=== PATIENT | male | born 2000 | race Two or more races ===

== ENCOUNTER 2024-11-15 10:27 | Emergency (ER) | payer SELFPAY ==
[2024-11-15 10:51] VITALS: BP 129/87; PULSE 73; RESP 16; TEMP 36.5; O2SAT 97; BMI 27.5
--- NOTE | 2024-11-15 10:52 | ED_ITS ---
HPI - Nausea/Vomiting/Diarrhea General Chief complaint: Nausea/Vomiting/Diarrhea Stated complaint: dizzy vomiting Time Seen by Provider: 11/15/24 11:15 Source: patient Mode of arrival: ambulatory Limitations: no limitations History of Present Illness ED Provider: ANDERS HADLEY Narrative: 23 yo male with intermittent vomiting x 2 weeks worse with food but no diarrhea, no fevers, states food is triggering him. He has not had this before. Notes he is under a lot of stress. He has missed work. He doesn't throw up after every meal but just some. Not on any medications for it. MD elicited complaint: nausea and vomiting Onset (ago): week(s) (2) Description of vomiting: food contents Associated nausea: Yes Associated abdominal pain: No Location of pain: none Severity: moderate Exacerbating factors: eating Relieving factors: none Context: other Associated symptoms: nausea/vomiting Related Data Previous Rx's ?Medication ?Instructions ?Recorded famotidine 20 mg tablet (Pepcid) 20 mg PO DAILY PRN abdominal 11/15/24 discomfort #30 tabs omeprazole 20 mg capsule,delayed 20 mg PO DAILY 14 days #14 caps 11/15/24 release ondansetron 4 mg disintegrating 4 mg PO Q8H PRN nausea and 11/15/24 tablet vomiting #20 tabs Allergies Allergy/AdvReac Type Severity Reaction Status Date / Time shellfish derived [shellfish] Allergy Unknown Verified 11/15/24 10:55 Review of Systems 2 Review of Systems: Constitutional : No Weight loss, No Fever, No Chills ENT/Mouth : No sore throat, No Rhinorrhea Eyes: No Swelling, No Redness Cardiovascular : No Chest Pain, No SOB, NoEdema Respiratory : No Cough, No Sputum, No Wheezing Gastrointestinal : Positive Nausea, Positive Vomiting, no Diarrhea, no abdominal Pain, No Hematochezia, No Melena Genitourinary : No Dysuria, No Urinary Frequency, No Hematuria, No Urgency Musculoskeletal : No joint pain, No Myalgias, No Joint Swelling Skin : No Skin Lesions, No rash Neuro : No Weakness, No Numbness, No Dizziness, No Headache Psych : No Anxiety/Panic, No Depression All other systems reviewed and are negative. Gastrointestinal: Gastrointestinal: Reports nausea PMFSH Past Medical History Attestation statement: The following information was validated with the patient. Medical History No pertinent past medical history Social History Social History (Updated 11/15/24 @ 11:17 by Hoda Orourke DO) Patient Tobacco Use Status: Never used Tobacco Do you have a plan to hurt others: No Plan Physical Exam 2 Vital Signs: Vital Signs: Last Vital Signs Temp 97.7 F 11/15/24 10:51 Pulse 73 11/15/24 10:51 Resp 16 11/15/24 10:51 BP 129/87 11/15/24 10:51 Pulse Ox 97 11/15/24 10:51 O2 Del Method Room Air 11/15/24 10:51 BMI result Body Mass Index 27.5 Appearance: Alert. Oriented X3. No acute distress. Eyes: Pupils equal, round and reactive to light. ENT: Pharynx normal. Neck: Normal inspection. Neck supple. CVS: Normal heart rate and rhythm. Pulses normal. Respiratory: No respiratory distress. Breath sounds normal. Abdomen: Soft and nontender. Skin: Skin warm and dry. Normal skin color. Normal skin turgor. Extremities: No lower extremity edema. No calf ttp Neuro: Oriented X 3. No motor deficit. No sensory deficit. CN2-12 intact Medical Decision Making Medical Decision Making [facility] Narrative: 23 yo male with no PMH states he has had vomiting for 2 weeks mostly after eating. He has been stressed out. He has no hx of this but now every other time he eats he vomits. No abdominal pain, no diarrhea. He states it is worse with eating. He denies travel or sick contacts. States it really is related to food. He has no pain on exam he is feeling fine. At this time no NSAID use. He has missed work missed work a few times due to this. Labs and PPI x 2 weeks with zofran. Can switch to pepcid. No pain to suggest biliary colic and appendicitis Differential Diagnosis Differential Diagnoses: The differential diagnosis associated with the presentation includes gastritis, GERD, stress Admission/Observation Consideration of admission/observation: Escalation of care including admission/observation considered labs reassuring stable for DC Lab Data [facility] Lab Attestation statement: I reviewed the patient's lab results. 11/15/24 11:06 11/15/24 11:06 Labs: Lab Results 11/15/24 Range/Units 11:06 WBC 8.7 (4.8-10.8) X10*3/uL RBC 4.31 L (4.60-5.80) X10*6/uL Hgb 14.2 (14.0-18.0) g/dl Hct 41.1 L (42.0-52.0) % MCV 95.4 (80.0-98.0) fL MCH 32.9 (27.0-33.0) pg MCHC 34.5 (31.0-36.0) g/dl RDW 11.9 (11.0-16.0) % Plt Count 299 (160-400) X10*3/uL MPV 9.9 (9.4-12.4) fL Immature Gran % (Auto) 0.7 H (0.0-0.4) % Neut % (Auto) 64.9 (45-73) % Lymph % (Auto) 23.2 (20-40) % [place] % (Auto) 7.4 (2-11) % Eos % (Auto) 3.2 (0-4) % Baso % (Auto) 0.6 (0-2) % Lymph # (Auto) 2.0 (1.2-4.9) X10*3/uL [place] # (Auto) 0.6 (0.1-1.2) X10*3/uL Eos # (Auto) 0.3 (0.0-0.4) X10*3/uL Baso # (Auto) 0.1 (0.0-0.2) X10*3/uL Abs Immat Gran (auto) 0.06 H (0.00-0.03) X10*3/uL Absolute Neuts (auto) 5.6 (2.0-8.3) x10*3/uL Absolute Nucleated RBC 0.000 (0.0-0.012) X10*3/uL Nucleated RBC % (auto) 0.0 (0.0-0.2) /100WBC Sodium 139 (135-145) mmol/L Potassium 4.1 (3.3-5.1) mmol/L Chloride 104 (96-108) mmol/L Carbon Dioxide 31 H (22-29) mmol/L Anion Gap 8 L (12-20) BUN 14 (9-16) mg/dL Creatinine 0.83 (0.5-1.4) mg/dL Estim Creat Clear Calc 124.2 Estimated GFR > 60 Random Glucose 137 H (60-115) mg/dL Calcium 10.0 (8.4-10.2) mg/dL Magnesium 2.2 (1.6-2.6) mg/dL Total Bilirubin 0.3 (0.0-1.0) mg/dL Direct Bilirubin 0.2 (0.0-0.5) mg/dL AST 38 H (5-37) U/L ALT 28 (0-40) U/L Alkaline Phosphatase 89 (39-117) U/L Total Protein 8.1 H (6.5-8.0) g/dL Albumin 4.5 (3.5-5.0) g/dL Lipase 13 (8-78) U/L Independent Historian Clinical information obtained from an independent historian. History obtained from or confirmed by: Spouse Prescription Management I considered prescription management with: Other Discharge Plan Discharge Clinical Impression: Gastritis Qualifiers: Gastritis type: unspecified gastritis Chronicity: acute Gastritis bleeding: w ithout bleeding Qualified Code(s): K29.00 - Acute gastritis without bleeding Nausea & vomiting Qualifiers: Vomiting type: unspecified Qualified Code(s): R11.2 - Nausea with vomiting, unspecified Patient Disposition: Home, Self-Care Instructions: Gastritis (ED), Acute Nausea and Vomiting (ED), Acute Abdominal Pain (ED) Additional Instructions: labs reassuring bland diet avoid alcohol and NSAID return for any worsening symptoms or concerns take omeprazole for 2 weeks then after take pepcid PRN Prescriptions: New famotidine [Pepcid] 20 mg tablet 20 mg PO DAILY PRN (Reason: abdominal discomfort) Qty: 30 0RF ondansetron 4 mg tablet,disintegrating 4 mg PO Q8H PRN (Reason: nausea and vomiting) Qty: 20 0RF omeprazole 20 mg capsule,delayed release(DR/EC) 20 mg PO DAILY 14 Days Qty: 14 0RF Stand Alone Forms: Work/School Release Print Language: Belarusian
[2024-11-15 11:11] LABS: MANUAL DIFF FLAG NO
[2024-11-15 11:18] LABS: Basophils Absolute Auto 0.1 X10*3/uL (0.0-0.2); Basophils Percent Auto 0.6 % (0-2); Eosinophils Absolute Auto 0.3 X10*3/uL (0.0-0.4); Eosinophils Percent Auto 3.2 % (0-4); Hematocrit 41.1 % (42.0-52.0); Hemoglobin 14.2 g/dl (14.0-18.0); Imm Gran Abs Auto 0.06 X10*3/uL (0.00-0.03); Imm Gran Pct Auto 0.7 % (0.0-0.4); Lymphocytes Percent Auto 23.2 % (20-40); Mean Corpuscular HGB Conc 34.5 g/dl (31.0-36.0); Mean Corpuscular Hemoglobin 32.9 pg (27.0-33.0); Mean Corpuscular Volume 95.4 fL (80.0-98.0); Mean Platelet Volume 9.9 fL (9.4-12.4); Monocytes Absolute Auto 0.6 X10*3/uL (0.1-1.2); Monocytes Percent Auto 7.4 % (2-11); Neutrophils Absolute Auto 5.6 x10*3/uL (2.0-8.3); Neutrophils Percent Auto 64.9 % (45-73); Platelet Count 299 X10*3/uL (160-400); Red Blood Count 4.31 X10*6/uL (4.60-5.80); Red Cell Distribution Width 11.9 % (11.0-16.0); White Blood Count 8.7 X10*3/uL (4.8-10.8)
[2024-11-15 11:32] LABS: Alanine Aminotransferase 28 U/L (0-40); Albumin Level 4.5 g/dL (3.5-5.0); Alkaline Phosphatase 89 U/L (39-117); Anion Gap 8 (12-20); Aspartate Amino Transferase 38 U/L (5-37); Bilirubin Direct 0.2 mg/dL (0.0-0.5); Bilirubin Total 0.3 mg/dL (0.0-1.0); Blood Urea Nitrogen 14 mg/dL (9-16); Carbon Dioxide 31 mmol/L (22-29); Chloride 104 mmol/L (96-108); Creatinine Clr Calc Pharmacy 124.2; Estimated Glomerular Filt Rate > 60; Glucose Random 137 mg/dL (60-115); Lipase 13 U/L (8-78); Magnesium 2.2 mg/dL (1.6-2.6); Potassium 4.1 mmol/L (3.3-5.1); Sodium 139 mmol/L (135-145); Total Protein 8.1 g/dL (6.5-8.0)
[2024-11-15 11:49] VITALS: BP 129/87; PULSE 73; RESP 16; TEMP 36.5; O2SAT 97
== END 2024-11-15 11:50 | disposition home or self-care (01) ==
PROVIDERS: Emergency Provider Emergency Medicine
DX: K29.00 Acute gastritis without bleeding (principal); R11.2 Nausea with vomiting, unspecified
CPT/HCPCS: 36415; 80048; 80076; 83690; 83735; 85025; 99282; 99283

== ENCOUNTER 2024-12-24 16:23 | Emergency (ER) | payer SELFPAY ==
[2024-12-24 16:33] VITALS: BP 139/82; PULSE 87; RESP 18; TEMP 36.2; O2SAT 97; BMI 39.0
--- NOTE | 2024-12-24 16:36 | ED.GENADULT ---
HPI - General Adult General Chief complaint: Abdominal Pain Stated complaint: vomiting last night needs note for work Time Seen by Provider: 12/24/24 20:30 Source: patient Limitations: no limitations History of Present Illness ED Provider: Kadie Ayers PA-C HPI narrative: 24-year-old male presents with nausea vomiting since last night. The patient's symptoms have improved, he is intermittently nauseous at this time. Denies diarrhea, fever, sick contacts with same symptoms. No abdominal pain. Related Data Previous Rx's ?Medication ?Instructions ?Recorded famotidine 20 mg tablet (Pepcid) 20 mg PO DAILY PRN abdominal 11/15/24 discomfort #30 tabs omeprazole 20 mg capsule,delayed 20 mg PO DAILY 14 days #14 caps 11/15/24 release ondansetron 4 mg disintegrating 4 mg PO Q8H PRN nausea and 11/15/24 tablet vomiting #20 tabs ondansetron HCl 4 mg tablet 4 mg PO Q8H PRN nausea and 12/24/24 vomiting #10 tabs Allergies Allergy/AdvReac Type Severity Reaction Status Date / Time shellfish derived [shellfish] Allergy Unknown Verified 12/24/24 16:36 Review of Systems Review of Systems: Yes all other systems are reviewed and are negative Constitutional: Constitutional: Denies fatigue and Denies fever(s) Cardiovascular: Cardiovascular: Denies chest pain Gastrointestinal: Gastrointestinal: Denies abdominal pain, Denies diarrhea, Reports nausea and Reports vomiting Endocrine: Endocrine: Denies fatigue PMFSH Past Medical History Attestation statement: The following information was validated with the patient. Medical History No pertinent past medical history Social History Social History (Updated 11/15/24 @ 11:17 by Hoda Orourke DO) Patient Tobacco Use Status: Never used Tobacco Physical Exam ED Vital Signs: Vital Signs - 24 hr 12/24/24 16:33 Temperature 97.1 F Pulse Rate 87 Respiratory Rate 18 Blood Pressure 139/82 Pulse Oximetry 97 Oxygen Delivery Method Room Air BMI result Body Mass Index 39.0 Const Other: Alert well-appearing Orientation/consciousness: patient oriented x3 Resp Effort & Inspection: normal respiratory effort Cardio Other: Normal peripheral perfusion Skin Other: Warm dry no rash Neuro General: patient oriented x3, gait normal, no focal motor deficits and CN's II-XI intact bilaterally Psych Other: Calm cooperative Course Course Course Narrative: This is a rapid medical exam performed by Kadie Ayers PA-C. Patient is a 24-year-old male who presents with intermittent abdominal discomfort with nausea vomiting x1 month. Associated constipation at times. No sick contacts with same symptoms. We will be screening basic labs and an x-ray. The patient is stable and can return to the waiting room pending his full medical assessment. Medical Decision Making Medical Decision Making [facility] Narrative: 24-year-old male presents with nausea vomiting since last night. The patient's symptoms have improved, he is intermittently nauseous at this time. Denies diarrhea, fever, sick contacts with same symptoms. No abdominal pain. No chronic issues History: Per patient I have considered the following differential diagnoses: Constipation, viral syndrome, gastritis, acute intra-abdominal pathology Plan: Patient here with symptoms that are already improving, he has no abdominal pain, he did state that he may be constipated, I ordered a screening KUB, the patient declined. Screening labs were also ordered from triage, everything is unremarkable. I have independently reviewed the following tests: Labs: No leukocytosis, not anemic, no electrolyte abnormality, viral panel negative Lab Data 12/24/24 17:06 12/24/24 17:06 Labs: Lab Results 12/24/24 Range/Units 17:06 WBC 7.6 (4.8-10.8) X10*3/uL RBC 4.48 L (4.60-5.80) X10*6/uL Hgb 14.8 (14.0-18.0) g/dl Hct 41.9 L (42.0-52.0) % MCV 93.5 (80.0-98.0) fL MCH 33.0 (27.0-33.0) pg MCHC 35.3 (31.0-36.0) g/dl RDW 11.9 (11.0-16.0) % Plt Count 295 (160-400) X10*3/uL MPV 10.0 (9.4-12.4) fL Immature Gran % (Auto) 0.3 (0.0-0.4) % Neut % (Auto) 59.4 (45-73) % Lymph % (Auto) 29.1 (20-40) % [place] % (Auto) 7.5 (2-11) % Eos % (Auto) 3.0 (0-4) % Baso % (Auto) 0.7 (0-2) % Lymph # (Auto) 2.2 (1.2-4.9) X10*3/uL [place] # (Auto) 0.6 (0.1-1.2) X10*3/uL Eos # (Auto) 0.2 (0.0-0.4) X10*3/uL Baso # (Auto) 0.1 (0.0-0.2) X10*3/uL Abs Immat Gran (auto) 0.02 (0.00-0.03) X10*3/uL Absolute Neuts (auto) 4.5 (2.0-8.3) x10*3/uL Absolute Nucleated RBC 0.000 (0.0-0.012) X10*3/uL Nucleated RBC % (auto) 0.0 (0.0-0.2) /100WBC Sodium 138 (135-145) mmol/L Potassium 3.9 (3.3-5.1) mmol/L Chloride 107 (96-108) mmol/L Carbon Dioxide 23 (22-29) mmol/L Anion Gap 12 (12-20) BUN 13 (9-16) mg/dL Creatinine 0.81 (0.5-1.4) mg/dL Estim Creat Clear Calc 144.7 Estimated GFR > 60 Random Glucose 87 (60-115) mg/dL Calcium 9.3 D (8.4-10.2) mg/dL Magnesium 2.3 (1.6-2.6) mg/dL Total Bilirubin 0.8 (0.0-1.0) mg/dL AST 32 (5-37) U/L ALT 21 (0-40) U/L Alkaline Phosphatase 73 (39-117) U/L Total Protein 8.3 H (6.5-8.0) g/dL Albumin 4.6 (3.5-5.0) g/dL Lipase 11 (8-78) U/L Influenza Type A (PCR) NEGATIVE (Negative) Influenza Type B (PCR) NEGATIVE (Negative) RSV RNA Qual (PCR) NEGATIVE (Negative) SARS-CoV-2 RNA (RT-PCR) NEGATIVE (Negative) Discharge Plan Discharge Clinical Impression: Nausea & vomiting Patient Disposition: Home, Self-Care Instructions: Acute Nausea and Vomiting (ED) Additional Instructions: All of your screening labs including a viral panel were completely normal. You declined the screening x-ray. You likely have another virus causing your symptoms. See home care instructions. Uses Zofran as needed for nausea. Follow up with your primary care provider as needed. Prescriptions: New ondansetron HCl 4 mg tablet 4 mg PO Q8H PRN (Reason: nausea and vomiting) Qty: 10 0RF No Action famotidine [Pepcid] 20 mg tablet 20 mg PO DAILY PRN (Reason: abdominal discomfort) Qty: 30 0RF ondansetron 4 mg tablet,disintegrating 4 mg PO Q8H PRN (Reason: nausea and vomiting) Qty: 20 0RF omeprazole 20 mg capsule,delayed release(DR/EC) 20 mg PO DAILY 14 Days Qty: 14 0RF Stand Alone Forms: Work/School Release Print Language: Slovak
[2024-12-24 17:14] LABS: MANUAL DIFF FLAG NO
[2024-12-24 17:22] LABS: Basophils Absolute Auto 0.1 X10*3/uL (0.0-0.2); Basophils Percent Auto 0.7 % (0-2); Eosinophils Absolute Auto 0.2 X10*3/uL (0.0-0.4); Hematocrit 41.9 % (42.0-52.0); Hemoglobin 14.8 g/dl (14.0-18.0); Imm Gran Abs Auto 0.02 X10*3/uL (0.00-0.03); Imm Gran Pct Auto 0.3 % (0.0-0.4); Lymphocytes Absolute Auto 2.2 X10*3/uL (1.2-4.9); Lymphocytes Percent Auto 29.1 % (20-40); Mean Corpuscular HGB Conc 35.3 g/dl (31.0-36.0); Mean Corpuscular Volume 93.5 fL (80.0-98.0); Monocytes Absolute Auto 0.6 X10*3/uL (0.1-1.2); Monocytes Percent Auto 7.5 % (2-11); Neutrophils Absolute Auto 4.5 x10*3/uL (2.0-8.3); Neutrophils Percent Auto 59.4 % (45-73); Platelet Count 295 X10*3/uL (160-400); Red Blood Count 4.48 X10*6/uL (4.60-5.80); Red Cell Distribution Width 11.9 % (11.0-16.0); White Blood Count 7.6 X10*3/uL (4.8-10.8)
[2024-12-24 17:40] LABS: Alanine Aminotransferase 21 U/L (0-40); Albumin Level 4.6 g/dL (3.5-5.0); Alkaline Phosphatase 73 U/L (39-117); Anion Gap 12 (12-20); Aspartate Amino Transferase 32 U/L (5-37); Bilirubin Total 0.8 mg/dL (0.0-1.0); Blood Urea Nitrogen 13 mg/dL (9-16); Calcium 9.3 mg/dL (8.4-10.2); Carbon Dioxide 23 mmol/L (22-29); Chloride 107 mmol/L (96-108); Creatinine Clr Calc Pharmacy 144.7; Estimated Glomerular Filt Rate > 60; Glucose Random 87 mg/dL (60-115); Lipase 11 U/L (8-78); Magnesium 2.3 mg/dL (1.6-2.6); Potassium 3.9 mmol/L (3.3-5.1); Sodium 138 mmol/L (135-145); Total Protein 8.3 g/dL (6.5-8.0)
[2024-12-24 18:00] LABS: Influenza A PCR NEGATIVE (Negative); Influenza B PCR NEGATIVE (Negative); Resp Syncy Virus RNA Qual PCR NEGATIVE (Negative); SARS COV2 PCR INHOUSE NEGATIVE (Negative)
[2024-12-24 20:30] VITALS: BP 113/64; PULSE 95; RESP 18; TEMP 36.9; O2SAT 96
--- OUTSIDE RECORDS SUMMARY | 2024-12-24 20:37 | XMS_ITS | Clinical Summary ---
Author Organization [facility] Address [address] [place] [address] Care Team Providers Care Director Digital Communications Name Role Phone Pcp, No Primary Care Provider Unavailabl e Allergies Active Allergy Reactions Criticality Noted Date Comments Shellfish-Derived Products GI Intolerance/Nausea/Vomiting Low 04/26/2020 Medications Medication Sig Dispensed Refills Start Date End Date Status aspirin enteric coated (ECOTRIN LOW STRENGTH) 81 MG EC tablet TAKE 1 TABLET (81 MG TOTAL) BY MOUTH 2 (TWO) TIMES A DAY. 04/27/2020 Active naproxen (NAPROSYN) 500 MG tabletIndications:Back spasm Take 1 tablet (500 mg total) by mouth 2 (two) times a day with meals. Take with meals or food to reduce stomach upset. 60 tablet 06/01/2020 Active methocarbamol (ROBAXIN) 750 MG tablet Take 1 tablet (750 mg total) by mouth 4 times daily (every 6 hours) as needed for muscle spasms. 20 tablet 05/11/2021 Active lidocaine (LIDODERM) 5 % patch Place 1 patch on the skin daily. Apply patch and leave on for 12 hours then remove. Patch may remain on skin for 12 hours per day. 30 patch 05/11/2021 Active fluticasone (FloNASE) 50 mcg/spray nasal sprayIndications:Dysfun ction of left eustachian tube 2 sprays into each nostril daily. 1 each 03/29/2022 Active ondansetron (ZOFRAN-ODT) 4 MG disintegrating tablet Take 1 tablet (4 mg total) by mouth 3 times daily (every 8 hours) as needed for nausea or vomiting. Place tablet on tongue to dissolve. 10 tablet 11/16/2023 Active albuterol (PROVENTIL HFA; VENTOLIN HFA) 108 (90 Base) MCG/ACT inhaler Inhale 1-2 puffs every 4 (four) hours as needed for wheezing. 1 each 11/17/2023 Active Spacer/Aero-Holding Chambers (aerochamber plus grecia-vu) spacer Use with your inhaler 1 each 11/17/2023 Active acetaminophen (TYLENOL) 500 MG tablet Take 2 tablets (1,000 mg total) by mouth 3 times daily (every 8 hours) as needed for mild pain or fever (pain). 20 tablet 11/17/2023 Active ibuprofen (MOTRIN) 600 MG tablet Take 1 tablet (600 mg total) by mouth 4 times daily (every 6 hours) as needed for mild pain. 20 tablet 11/17/2023 Active methocarbamol (ROBAXIN) 750 MG tabletIndications:Lumba r sprain, initial encounter Take 1 tablet (750 mg total) by mouth 3 (three) times a day. 10 tablet 11/23/2023 Active Active Problems Problem Noted Date Diagnosed Date Right foot injury 06/01/2020 Back spasm 06/01/2020 Status epilepticus 02/05/2019 Immunizations Name Administration Dates Next Due Influenza (AFLURIA/FLUZONE) Inactivated/Split Quadrivalent with Preservative IM 09/02/2019(Deferred: Patient decision),08/19/2018 Social History Tobacco Use Types Packs/Day Years Used Date Smoking Tobacco: Never Smokeless Tobacco: Never Tobacco Cessation:Counseling Given: Not Answered Alcohol Use Standard Drinks/Week Comments Not Currently 0 (1 standard drink = 0.6 oz pur e alcohol) Sex and Gender Information Value Date Recorded Sex Assigned at Male 11/16/2023 11:03 AM EST Gender Identity Male 11/16/2023 11:03 AM EST Sexual Orientation Heterosexual (straight) 11/16 11:03 AM EST Last Filed Vital Signs Vital Sign Reading Time Taken Comments Blood Pressure 107/56 03/29/2024 9:56 PM EDT Pulse 90 03/29/2024 9:56 PM EDT Temperature 36.6 ??C (97.8 ??F) 03/29/2024 9:56 PM ED T Respiratory Rate 18 03/29/2024 9:56 PM EDT Oxygen Saturation 98% 03/29/2024 9:56 PM EDT Inhaled Oxygen Concentration - - Weight 74.8 kg (165 lb) 11/16/2023 8:38 PM EST Height 160 cm (5' 3 ) 11/16/2023 8:38 PM EST Body Mass Index 29.23 11/16/2023 8:38 PM EST Plan of Treatment Health Maintenance Due Date Last Done Comments Hepatitis C Virus Screening 1998 HIV Screening 2011 HPV Vaccines (1 - Male 3-dos e series) 2013 DTaP/Tdap/Td Vaccines (1 - Tdap) 2017 Hepatitis B Vaccines (1 of 3 - 19+ 3-dose series) 2017 Influenza Vaccine 06/03/2024 08/19/2018 COVID-19 Vaccine ( - 2023-2 5 season) 2024 12/03/2021, 11/05/2021 Pneumococcal Vaccine: Pediatric (0-5 Years) and At-Risk Patients (6 to 49 Years) Aged Out No longer eligible b ased on patient's age to complete this topic Advance Directives * Full Code (Latest Code Status on File) Date Activated Date Inactivated Comments 02/05/2019 11:50 PM 04/26/2020 7:04 PM * Full Code Date Activated Date Inactivated Comments 02/05/2019 11:44 PM 02/05/2019 11:50 PM Care Teams Director Digital Communications Relationship Specialty Start Date End Date Pcp, No PCP - General General Medicine 11/16/23
--- OUTSIDE RECORDS SUMMARY | 2024-12-24 20:37 | XMS_ITS | Continuity of Care Document ---
Author Organization [facility] Address [address] [place] [address] Phone Care Team Providers Care Hammerer Helper Name Role Phone Gil Madrigal LMSW Unavailable Unavailabl e Medications Medication Instructions Dosage Effective Dates (start - stop) Status Comments quetiapine 100 mg tablet take 1 tablet by oral route every bedtime 100 MG - Active lamotrigine 25 mg tablet take 1 tablet by oral route every day x 14 days then increase to 2 tablets by oral route each day - Active prazosin 2 mg capsule take 1 capsule by oral route every day at bedtime 2 MG - Active Advance Directives Directive Yes / No Effective Date File Name No Information Encounters Encounter Description Practice Location Reason(s) For Visit Diagnoses Date Provider [facility], [address] [place] [address], [address] [place] [address] tel:[phone] OP A [address] No Information 2022 Rohan Cordero. [address] [place] [address], [address] [place] [address], . tel:[phone] [facility], [facility], tel:[phone] OP A [address] 2021 Rohan Cordero. [address] [place] [address], [address] [place] [address], . tel:[phone] [facility], [address] [place] [address], [address] [place] [address] tel:[phone] OP A [address] 2021 Rohan Cordero. [address] [place] [address], [address] [place] [address], [place]. tel:[phone] [facility], [address] [place] [address], [facility], tel:[phone] OP A [facility] [address] 2021 Madrigal Luseldi. [address] [place] [address], [address] [place] [address], [place]. tel:[phone] [place] [address], [address] [place] [address], [facility], [place] tel:[phone] OP A [facility] [address] 2021 Madrigal Luseldi. [address] [place] [address], [address] [place] [address], [place]. tel:[phone] [place] [address], [address] [place] [address], [facility], tel:[phone] OP A [address] Medication Management (chief complaint)Collin pérezatric (chief complaint) 2021 Marcos Gonzalez. [address] [place] [address], [address] [place] [address], [place]. tel:[phone] [place], [place] [address]er [facility], [address] [place] [address], [facility], tel:[phone] OP A [facility] [address] 2021 Madrigal Luseldi. [address] [place] [address], [address] [place] [address], [place]. tel:[phone] [place] [address], [address] [place] [address], [facility], [place] tel:[phone] OP A fd [address] No Information 2021 Marcos Gonzalez. [address] [place] [address], [address] [place] [address], [place]. tel:[phone] [place], [place] [address]er [facility], [address] [place] [address], [facility], tel:[phone] OP A [facility] [address] 2021 Madrigal Luseldi. [address] [place] [address], [address] [place] [address], [place]. tel:[phone] [facility], [address] [place] [address], [facility], tel:[phone] OP A [facility] [address] 2021 Madrigal Luseldi. [address] [place] [address], [address] [place] [address], [place]. tel:[phone] [place] [address], [address] [place] [address], [facility], tel:[phone] OP A fd [address] Medication Management (chief complaint)Collin chiatric (chief complaint) 2021 Marcos Gonzalez. [address] [place] [address], [address] [place] [address], [place]. tel:[phone] [place] [address], [address] [place] [address], [facility], tel:[phone] OP A [facility] [address] 2021 Madrigal Luseldi. [address] [place] [address], [address] [place] [address], [place]. tel:[phone] [place] [address], [address] [place] [address], [facility], tel:[phone] OP A [facility] [address] 2021 Madrigal Luseldi. [address] [place] [address], [address] [place] [address], [place]. tel:[phone] [place], [place] [address]er [facility], [address] [place] [address], [facility], tel:[phone] OP A [facility] [address] 2021 Madrigal Luseldi. [address] [place] [address], [address] [place] [address], [place]. tel:[phone] [facility], [address] [place] [address], [facility], tel:[phone] OP A [facility] [address] 2021 Marcos Gonzalez. [address] [place] [address], [address] [place] [address], [place]. tel:[phone] [facility], [address] [place] [address], [facility], tel:[phone] OP A [facility] [address] 2021 Christian Lopez. [address] [place] [address], [place], [place], [id number], [place]. tel:[phone] As per patient privacy policy some of the clinical information may not be visible. Family History Family Member Type Diagnosis Age At Onset Father Problem anger Mother Problem Alive and well Mother Problem Depression Father Problem Alive and well Mother Problem Anxiety disorder Payers Payer name Insurance type Covered republican ID Laurie watson(s) [facility] [id number] Social History Type Description Quantity Date Captured Comments Sex Male Smoking Status No Information Sexual Orientation Straight or heterosexual Gender Identity Male Chief Complaint And Reason For Visit No Information Plan Of Treatment Date Type Action Status Goal HIV 1/0/2 Ag/Ab w/Rflx. Due on due Goal Health Literacy Assessment. Due on due Goal Depression screening. Due on due Goal Hepatitis C screening. Due o n due Goal Influenza vaccine. Due on due Goal Td vaccine. Due on due Goal Tdap. Due on due Goal Unhealthy drug u se screening. Due on due Goal Depression screening. Due on due Goal Influenza vaccine. Due on due Goal Td vaccine. Due on due Goal Health Literacy Assessment. Due on due Goal HIV 1/0/2 Ag/Ab w/Rflx. Due on due Goal Tdap. Due on due Goal Hepatitis C screening. Due o n due Goal Unhealthy drug u se screening. Due on due Goal Td vaccine. Due on due Goal HIV 1/0/2 Ag/Ab w/Rflx. Due on due Goal Influenza vaccine. Due on No due Goal Hepatitis C screening. Due o n due Goal Tdap. Due on due Goal Unhealthy drug u se screening. Due on due Goal Depression screening. Due on due Goal Health Literacy Assessment. Due on due Goal Unhealthy drug u se screening. Due on due Goal Tdap. Due on due Goal HIV 1/0/2 Ag/Ab w/Rflx. Due on due Goal Influenza vaccine. Due on due Goal Hepatitis C screening. Due o n due Goal Depression screening. Due on due Goal Td vaccine. Due on due Goal Health Literacy Assessment. Due on due Goal Tdap. Due on due Goal Influenza vaccine. Due on Oc due Goal Unhealthy drug u se screening. Due on due Goal Health Literacy Assessment. Due on due Goal HIV 1/0/2 Ag/Ab w/Rflx. Due on due Goal Td vaccine. Due on due Goal Hepatitis C screening. Due o n due Goal Depression screening. Due on due Goal HIV 1/0/2 Ag/Ab w/Rflx. Due on due Goal Tdap. Due on due Goal Unhealthy drug u se screening. Due on due Goal Td vaccine. Due on due Goal Influenza vaccine. Due on Oc due Goal Health Literacy Assessment. Due on due Goal Depression screening. Due on due Goal Hepatitis C screening. Due o n due Goal HIV 1/0/2 Ag/Ab w/Rflx. Due on due Goal Unhealthy drug u se screening. Due on due Goal Hepatitis C screening. Due o n due Goal Tdap. Due on due Goal Depression screening. Due on due Goal Influenza vaccine. Due on due Goal Td vaccine. Due on due Goal Health Literacy Assessment. Due on due Goal Influenza vaccine. Due on due Goal HIV 1/0/2 Ag/Ab w/Rflx. Due on due Goal Tdap. Due on due Goal Td vaccine. Due on due Goal Hepatitis C screening. Due o n due Goal Health Literacy Assessment. Due on due Goal Unhealthy drug u se screening. Due on due Goal Depression screening. Due on due Goal Tdap. Due on due Goal Influenza vaccine. Due on due Goal Hepatitis C screening. Due o n due Goal Td vaccine. Due on due Goal Unhealthy drug u se screening. Due on due Goal Health Literacy Assessment. Due on due Goal HIV 1/0/2 Ag/Ab w/Rflx. Due on due Goal Depression screening. Due on due Goal Td vaccine. Due on due Goal Unhealthy drug u se screening. Due on due Goal Hepatitis C screening. Due o n due Goal Tdap. Due on due Goal HIV 1/0/2 Ag/Ab w/Rflx. Due on due Goal Health Literacy Assessment. Due on due Goal Influenza vaccine. Due on due Goal Depression screening. Due on due Goal HIV 1/0/2 Ag/Ab w/Rflx. Due on due Goal Depression screening. Due on due Goal Unhealthy drug u se screening. Due on due Goal Hepatitis C screening. Due o n due Goal Tdap. Due on due Goal Health Literacy Assessment. Due on due Goal Td vaccine. Due on due Goal Influenza vaccine. Due on due Goal Health Literacy Assessment. Due on due Goal Unhealthy drug u se screening. Due on due Goal HIV 1/0/2 Ag/Ab w/Rflx. Due on due Goal Tdap. Due on due Goal Depression screening. Due on due Goal Influenza vaccine. Due on due Goal Hepatitis C screening. Due o n due Goal Td vaccine. Due on due Goal Influenza vaccine. Due on due Goal Depression screening. Due on due Goal Hepatitis C screening. Due o n due Goal HIV 1/0/2 Ag/Ab w/Rflx. Due on due Goal Td vaccine. Due on due Goal Unhealthy drug u se screening. Due on due Goal Health Literacy Assessment. Due on due Goal Tdap. Due on due Goal Hepatitis C screening. Due o n due Goal HIV 1/0/2 Ag/Ab w/Rflx. Due on due Goal Tdap. Due on due Goal Td vaccine. Due on due Goal Influenza vaccine. Due on due Goal Depression screening. Due on due Goal Unhealthy drug u se screening. Due on due Goal Health Literacy Assessment. Due on due Goal Influenza vaccine. Due on due Goal HIV 1/0/2 Ag/Ab w/Rflx. Due on due Goal Unhealthy drug u se screening. Due on due Goal Tdap. Due on due Goal Td vaccine. Due on due Goal Health Literacy Assessment. Due on due Goal Depression screening. Due on due Goal Hepatitis C screening. Due o n due Goal Hepatitis C screening. Due o n due Goal Depression screening. Due on due Goal Health Literacy Assessment. Due on due Goal Td vaccine. Due on due Goal Tdap. Due on due Goal Unhealthy drug u se screening. Due on due Goal HIV 1/0/2 Ag/Ab w/Rflx. Due on due Goal Influenza vaccine. Due on due Referral Ordered: Referrals: Neuropsychology - Adult ordered Future Order: Lab Order LIPID PANEL ([id number] ), Sent on: Sent Future Order: Lab Order THYROID PANEL ([id number]), Sent on: Sent Future Order: Lab Order PROLACTIN ([id number]), Sent on: Sent Future Order: Lab Order COMPREHE NSIVE METABOLIC PANEL ([id number]), Sent on: Sent Future Order: Lab Order CBC (INC LUDES DIFF/PLT) ([id number]), Sent on: Sent Future Order: Lab Order HEMOGLOB IN A1C ([id number]), Sent on: Sent History Of Present Illness Encounter Date Complaint History Of Prese nt Illness Medication Management Client is in clinic today for medication management visit. He states his depression is worse, he is always hungry from Olanzapine and the fluoxetine has not helped at all. He is more depressed today than usual related to the of his aunt yesterday. He denies current SI but states, it's getting to a point where I am just tired of everything. Client denies command hallucinations but does state he sees shadows sometimes. Endorses continued nightmares with some improvement w/Prazosin. Denies HI or AH. We discussed hospital admission as an option and client declined stating adamantly he is not feeling suicidal. He is also adamant that medication changes need to be made. Client appears irritable during visit. Psychiatric There is no impr ovement of initial symptoms. The patient reports functioning as very difficult. The patient presents with depressed mood, difficulty falling asleep, difficulty staying asleep, diminished interest or pleasure and hallucinations but denies anxious/fearful thoughts, compulsive thoughts, decreased need for sleep, increased energy, loss of appetite, paranoia, poor judgment, racing thoughts or thoughts of or suicide. The Psychiatric is aggravated by conflict or stress and lack of sleep. The Psychiatric is associated with irritability. The patient denies any chronic pain, headache, nausea, sweating, trembling, vomiting and weight gain. Medication Management Client sta forrest he is doing ok. States medication was initially working well to assist w/nightmares, sleep and mood. After about 2 weeks the medication became less effective. Continues to have visual and auditory hallucinations that are non command. Denies side effects to medications. Denies SI, HI or AVH. Client states he is pretty sure I have OCD. States he is compulsive about cutting his own hair, he is a parrish, at least every five days or he feels nasty. Denies any other obsessions or compulsions. Psychiatric The patient pres ents with compulsive thoughts, depressed mood, difficulty staying asleep and hallucinations but denies anxious/fearful thoughts, decreased need for sleep, difficulty concentrating, difficulty falling asleep, loss of appetite, paranoia, poor judgment, racing thoughts, restlessness or thoughts of or suicide. The patient denies any chronic pain, headache, irritability, nausea, sweating, trembling, urinary frequency, vomiting and weight gain. The patient denies any associated symptoms. Instructions Date Instruction Additional Infor mation No Information As per patient privacy policy some of the clinical information may not be visible. Assessments Type Assessment Date No Information
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
--- OUTSIDE RECORDS SUMMARY | 2024-12-24 20:37 | XMS_ITS | Encounter Summary ---
Author Organization [facility] Address [address] [place] [address] Care Team Providers Care Drupal Developer Name Role Phone Pcp, No Primary Care Provider Unavailabl e Encounter Details Date Type Department Care Team (Late st Contact Info) Description 10/09/2019 1:05 PM EST Hospital Encounter [facility] [place] 2[place] Ur[facility] Care [address] [facility] [address] [place] [id number] Adryan Torres PA [place] [facility] [address] [place] [address] Social History Tobacco Use Types Packs/Day Years [...] Name Priority Date/Time Associated Diagnosis Comments XR TIBIA/FIBULA 2 VIEWS-RIGHT STAT 10/09/2019 1:13 PM EST Right leg pain documented in this encounter Results * XR Tibia/fibula 2 views-Right (10/09/2019 1:13 PM EST) Anatomical Region Laterality Modality Leg Right Computed Radiogr aphy 10/09/2019 1:13 PM EST Impressions 10/09/2019 1:15 PM EST Normal radiographic examination of the right lower leg and ankle. Narrative 10/09/2019 1:15 PM EST COMPARISON: ??None available. TECHNIQUE: -2 views of the right lower leg -3 views of the right ankle FINDINGS: BONES: ??Normal. JOINTS: ??Normal. SOFT TISSUES: Normal. Procedure Note Jin Sen MD - 10/09/2019 COMPARISON: None available. TECHNIQUE: -2 views of the right lower leg -3 views of the right ankle FINDINGS: BONES: Normal. JOINTS: Normal. SOFT TISSUES: Normal. IMPRESSION: Normal radiographic examination of the right lower leg and ankle. Adryan FERMIN IMG DIAGNOSTIC IMAGI NG ORDERABLES documented in this encounter Visit Diagnoses Not on filedocumented in this encounter Care Teams Drupal Developer Relationship Specialty Start Date End Date Pcp, No PCP - General General Medicine 08/04/19 04/25/20 documented as of this encounter
--- OUTSIDE RECORDS SUMMARY | 2024-12-24 20:37 | XMS_ITS | Clinical Summary ---
Author Organization [facility] Address [address] [place] [address] Care Team Providers Care Pipe Finishing Supervisor Name Role Phone Unavailable Primary Care Provider Unavailabl e Allergies Active Allergy Reactions Criticality Noted Date Comments Shellfish-Derived Products Nausea And Vomiting Low 04/26/2020 Medications Medication Sig Dispensed Refills Start Date End Date Status ondansetron (ZOFRAN-ODT) 8 MG disintegrating tablet Take 1 tablet (8 mg total) by mouth every 8 (eight) hours as needed for nausea. 20 tablet 0 03/20/2021 Active ibuprofen 800 MG tablet Take 1 tablet (800 mg total) by mouth every 8 (eight) hours as needed. 30 tablet 0 03/28/2021 Active Social History Tobacco Use Types Packs/Day Years Used Date Smoking Tobacco: Never Smokeless Tobacco: Never Alcohol Use Standard Drinks/Week Comments Never 0 (1 standard drink = 0.6 oz pur e alcohol) Sex and Gender Information Value Date Recorded Sex Assigned at Male 03/12/2021 2:53 PM EDT Gender Identity Male 03/12/2021 2:53 PM EDT Sexual Orientation Not on file Job Start Date Occupation Industry Not on file Not on file Not on file Last Filed Vital Signs Vital Sign Reading Time Taken Comments Blood Pressure 112/92 06/15/2021 12:22 PM EDT Pulse 77 06/15/2021 12:22 PM EDT Temperature 36.3 ??C (97.3 ??F) 06/15/2021 12:22 PM E DT Respiratory Rate 16 03/20/2021 3:44 PM EDT Oxygen Saturation 98% 06/15/2021 12:22 PM EDT Inhaled Oxygen Concentration - - Weight 79.8 kg (176 lb) 03/29/2021 10:52 AM EDT Height 162.6 cm (5' 4 ) 03/29/2021 10:52 AM EDT Body Mass Index 30.21 03/29/2021 10:52 AM EDT Plan of Treatment Health Maintenance Due Date Last Done Comments Hepatitis B Vaccines (1 of 3 - 3-dose series) 1998 Hepatitis C Screening 1998 COVID-19 Vaccine (#1) 06/11/1999 Depression Screening 2010 BMI Counseling 2016 Preventative Health Evaluation 2016 DTap / Tdap / Td (1 - Tdap) 2017 Influenza Vaccine (#1) 2024 08/19/2018 Pneumococcal Vaccine Aged Out No long er eligible based on patient's age to complete this topic RSV Ped < 20 months Aged Out No longe r eligible based on patient's age to complete this topic
--- OUTSIDE RECORDS SUMMARY | 2024-12-24 20:37 | XMS_ITS | Continuity of Care Document ---
Author Organization [facility] vices Address [address] [place] [address] Phone Care Team Providers Care Information Clerk Brokerage Name Role Phone Colin MIGUELPedro Unavailable Unavailab le Allergies, Adverse Reactions, Alerts Substance Reaction Status Criticality No Known Allergies Active No Inform ation Medications Medication Instructions Dosage Effective Dates (start - stop) Status Comments ibuprofen 800 mg tablet take 1 tablet by oral route 3 times every day with food as needed for pain 800 MG - Active Procedures Procedure Date PREV VISIT, [facility], AGE 18-39 Advance Directives Directive Yes / No Effective Date File Name No Information Encounters Encounter Description Practice Location Reason(s) For Visit Diagnoses Date Provider Providers Copied on Encounter [facility], [address] [place] [address], [facility], tel:[phone] [facility] Adult Medicine No Information [facility], [id number] [address] [place] [address], [facility], [place]. tel:[phone] PREV VISIT, NEW, AGE 18-39 [facility], [address] [place] [address], [facility], [place] tel:[phone] [facility] Adult Medicine [place] Establish Care/Annual Physical (chief complaint) Encounter for general adult medical examination without abnormal findingsBody mass index (BMI) 33.0-33.9, adultAcute right ankle painLow back pain, unspecified back pain laterality, unspecified chronicity, unspecified whether sciatica present [facility]. [address] [place] [address], [id number] [address] [place] [address], [facility], [place]. tel:[phone] Family History Family Member Type Diagnosis Age At Onset No Information Payers Payer name Insurance type Covered alliance party ID Authorlebron watson(s) [place] [id number] Social History Type Description Quantity Date Captured Comments Sex Male Smoking Status No Information Sexual Orientation Straight or heterosexual Sep Gender Identity Male Chief Complaint And Reason For Visit No Information Reason For Referral Reason For Referral No Information Plan Of Treatment Date Type Action Status Goal Dietary management education , guidance, and counseling completed Referral Referred To: Physical Therapy Ordered: Referrals: Physical Therapy. Evaluate and treat ordered History Of Present Illness Encounter Date Complaint History Of Prese nt Illness Establish Care/Annual Physical [age] y/o male presents to establish care and is requesting a Physical for insurance. Pt feels in overall good health.PMHx: NoneCurrent meds: NoneFam hx: NoneSurg hx: NoneSoc hx: denies cigarette, alcohol or drug use including heroin/cocaine, PCP, marijuanaPt reports he recently had a sprain to the right ankle; pt went to the urgent care and an X-ray was done which was negative for fracture or dislocation. Pt states he feels the ankle doesn't seem to be improving. Pt is taking Tylenol PRN for pain.Pt also c/o intermittent back spasms. Pt states he took Cyclobenzaprine in the past but didn't like the way it made him feel. 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 Pt denies trauma. Functional Status Date Functional Assessmen t No Information Instructions Date Instruction Additional Infor mation Please complete labs . F/U in 4 weeks for right ankle/back pain. Will fill out paperwork. Out of work letter x 1 week. Related to Encounter for general adult medical examination without abnormal findings Dietary management e ducation, guidance, and counseling Related to Body mass index (BMI) 33.0-33.9, adult Weight monitoring Related to Bod y mass index (BMI) 33.0-33.9, adult Assessments Type Assessment Date No Information Patient Care Teams Name Effective Dates (start - stop) Status Members No Information
--- OUTSIDE RECORDS SUMMARY | 2024-12-24 20:37 | XMS_ITS | Encounter Summary ---
Author Organization [facility] Address [address] [place] [address] Care Team Providers Care Scientific Informatics Project Leader Name Role Phone Antonio Byers Primary Care Provider [phone] Ramona Champion MD Unavailable Unavaila ble Antonio Byers Primary Care Provider [phone] Antonio Byers Primary Care Provider [phone] Pcp, No Primary Care Provider Unavailabl e Encounter Details Date Type Department Care Team (Late st Contact Info) Description 06/06/2020 Telephone [facility] Urologic Surgery [place] [address] [facility] [address] [place] [phone] Rony Sanchez MD [address] [facility] [address] [place] [address] Social History Tobacco Use Types Packs/Day Years [...] Exposure Response Date Recorded In the last month, have you been in contact with someone who was confirmed or suspected to have Coronavirus / COVID-19? No / Unsure 05/31/2020 10:24 AM EDT documented as of this encounter Miscellaneous Notes * Telephone Encounter - Milly Kamryn - 06/06/2020 9:35 AM EDT Lm to cb for NPV referral in que documented in this encounter Plan of Treatment Not on file documented as of this encounter Visit Diagnoses Not on filedocumented in this encounter Care Teams Scientific Informatics Project Leader Relationship Specialty Start Date End Date Antonio Byers PA PCP - General Internal Medicine 05/23/20 11/14/21 Ramona Champion MD Retired provider PCP - Rolly Perez 01/01/21 09/02/21 Antonio Byers PA Retired provider PCP - General Emergency Medicine 03/29/22 11/15/23 Antonio Byers PA [facility] [address] [place] [address] PCP - General Emergency Medicine 03/15/22 03/28/22 Pcp, No PCP - General General Medicine 11/16/23 documented as of this encounter
[2024-12-24 20:40] VITALS: BP 113/64; PULSE 95; RESP 18; TEMP 36.9; O2SAT 96
== END 2024-12-24 20:41 | disposition home or self-care (01) ==
PROVIDERS: Physician Assistant Medical; Emergency Provider Internal Medicine
DX: R11.2 Nausea with vomiting, unspecified (principal); R10.30 Lower abdominal pain, unspecified; K59.00 Constipation, unspecified; Z03.818 Encounter for observation for suspected exposure to other biological agents ruled out; Z79.899 Other long term (current) drug therapy
CPT/HCPCS: 0241U; 36415; 80053; 83690; 83735; 85025; 99282; 99283

== ENCOUNTER 2024-12-27 17:32 | Emergency (ER) | payer SELFPAY ==
[2024-12-27 18:00] VITALS: BP 124/85; PULSE 92; RESP 20; TEMP 36.7; O2SAT 98
--- NOTE | 2024-12-27 18:18 | ED.ABDPAIN ---
HPI - Abdominal Pain General Chief Complaint: Abdominal Pain Stated Complaint: vomiting/abd pain Time Seen by Provider: 12/27/24 22:22 History of Present Illness ED Provider: Korin HADLEY narrative: The patient is a 24-year-old male who has been having problems with upper abdominal pains and episodes of nausea and vomiting for several weeks. Sometimes he has had streaks of blood in his vomit. His last episode of emesis was last night. The emesis was yellow which he found surprising. He has had no black stools. No fever, sweats, chills. Related Data Previous Rx's ?Medication ?Instructions ?Recorded famotidine 20 mg tablet (Pepcid) 20 mg PO DAILY PRN abdominal 11/15/24 discomfort #30 tabs omeprazole 20 mg capsule,delayed 20 mg PO DAILY 14 days #14 caps 11/15/24 release ondansetron 4 mg disintegrating 4 mg PO Q8H PRN nausea and 11/15/24 tablet vomiting #20 tabs ondansetron HCl 4 mg tablet 4 mg PO Q8H PRN nausea and 12/24/24 vomiting #10 tabs omeprazole 40 mg capsule,delayed 40 mg PO DAILY #30 caps 12/27/24 release ondansetron 4 mg disintegrating 4 mg PO Q6H PRN nausea and 12/27/24 tablet vomiting #10 tabs sucralfate 1 gram tablet 1 g PO TID PRN upper abdominal 12/27/24 pain #60 tabs Allergies Allergy/AdvReac Type Severity Reaction Status Date / Time shellfish derived [shellfish] Allergy Unknown Verified 12/27/24 18:03 Review of Systems Review of Systems Yes all other systems are reviewed and are negative [facility] Past Medical History Medical History No pertinent past medical history Social History Social History (Updated 11/15/24 @ 11:17 by Hoda Orourke DO) Patient Tobacco Use Status: Never used Tobacco Smoked in Last 30 Days: Yes Use of substances other than those prescribed or required for medical reasons: Yes Substance Use Type: Marijuana Advance Directives: No Advance Directives Information Provided: No Physical Exam ED Vital Signs: Vital Signs - 24 hr 12/27/24 18:00 12/27/24 22:04 12/27/24 22:50 Temperature 98.1 F 98.6 F 98.6 F Pulse Rate 92 67 67 Respiratory Rate 20 18 18 Blood Pressure 124/85 123/92 H 123/92 H Pulse Oximetry 98 99 99 Oxygen Delivery Method Room Air Room Air Room Air BMI result Body Mass Index 30.0 Const Other: The patient is a 24-year-old male who looks as though he is ordinarily healthy. He is awake and alert and does not appear in acute distress. Orientation/consciousness: patient oriented x3 HENMT Other: Face is symmetrical. Mucous membranes moist. Eyes General: appearance normal, both eyes and all related structures Neck Neck: Yes full ROM and Yes no lymphadenopathy Resp Effort & Inspection: normal respiratory effort Auscultation: clear to auscultation bilaterally Cardio Rate: regular rate Rhythm: regular rhythm Heart sounds: S1 normal heart sound present and S2 normal heart sound present GI Other: Abdomen is soft and nontender. Skin General skin exam: no rashes or lesions noted Neuro General: patient oriented x3, tone normal, moves all extremities, no focal motor deficits and CN's II-XI intact bilaterally Extrem General: Yes no pedal edema Course Course Course Narrative: This is a Rapid Medical Examination (RME) performed by Francisco Nava PA-C in triage. Full HPI, ROS, assessment and treatment plan per primary provider in the Main ED. 24 yo male here for eval of generalized abdominal pain and vomiting. intermittent blood streaks in vomit. no thinners. no known sick contacts. no fever/chills. Plan: labs, viral swabs Medical Decision Making Medical Decision Making MDM Narrative: The patient is a very pleasant 24-year-old male who was ordinarily in good health. He is on no medications. He has been having problems with epigastric abdominal pain and also episodes of nausea and vomiting. He thinks he has had some episodes of streaks of blood in his emesis although his most recent emesis was yellow. He has had no melena. Laboratory evaluation is unremarkable. His hemoglobin is 14.5, very similar to previous values. He will be started on a proton pump inhibitor. He was prescribed omeprazole as well as ondansetron and sucralfate. He is working on getting a PCP. He should return if worse, especially if he has worsening hematemesis or any black stools. Lab Data 12/27/24 19:22 12/27/24 19:22 Labs: Lab Results 12/27/24 Range/Units 19:22 WBC 9.0 (4.8-10.8) X10*3/uL RBC 4.39 L (4.60-5.80) X10*6/uL Hgb 14.5 (14.0-18.0) g/dl Hct 41.2 L (42.0-52.0) % MCV 93.8 (80.0-98.0) fL MCH 33.0 (27.0-33.0) pg MCHC 35.2 (31.0-36.0) g/dl RDW 12.0 (11.0-16.0) % Plt Count 271 (160-400) X10*3/uL MPV 9.9 (9.4-12.4) fL Immature Gran % (Auto) 0.2 (0.0-0.4) % Neut % (Auto) 63.8 (45-73) % Lymph % (Auto) 24.8 (20-40) % [place] % (Auto) 8.3 (2-11) % Eos % (Auto) 2.2 (0-4) % Baso % (Auto) 0.7 (0-2) % Lymph # (Auto) 2.2 (1.2-4.9) X10*3/uL [place] # (Auto) 0.8 (0.1-1.2) X10*3/uL Eos # (Auto) 0.2 (0.0-0.4) X10*3/uL Baso # (Auto) 0.1 (0.0-0.2) X10*3/uL Abs Immat Gran (auto) 0.02 (0.00-0.03) X10*3/uL Absolute Neuts (auto) 5.7 (2.0-8.3) x10*3/uL Absolute Nucleated RBC 0.000 (0.0-0.012) X10*3/uL Nucleated RBC % (auto) 0.0 (0.0-0.2) /100WBC PT 10.1 L (10.9-12.4) SEC INR 0.9 (0.9-1.1) Sodium 140 (135-145) mmol/L Potassium 3.6 (3.3-5.1) mmol/L Chloride 108 (96-108) mmol/L Carbon Dioxide 22 (22-29) mmol/L Anion Gap 14 (12-20) BUN 22 H (9-16) mg/dL Creatinine 0.97 (0.5-1.4) mg/dL Estim Creat Clear Calc 105.8 Estimated GFR > 60 Random Glucose 90 (60-115) mg/dL Calcium 9.1 (8.4-10.2) mg/dL Magnesium 2.3 (1.6-2.6) mg/dL Total Bilirubin 0.8 (0.0-1.0) mg/dL AST 36 (5-37) U/L ALT 20 (0-40) U/L Alkaline Phosphatase 75 (39-117) U/L Total Protein 8.0 (6.5-8.0) g/dL Albumin 4.3 (3.5-5.0) g/dL Lipase 12 (8-78) U/L Influenza Type A (PCR) NEGATIVE (Negative) Influenza Type B (PCR) NEGATIVE (Negative) RSV RNA Qual (PCR) NEGATIVE (Negative) SARS-CoV-2 RNA (RT-PCR) NEGATIVE (Negative) Medications Administered Discontinued Medications Generic Name Dose Route Start Last Admin Trade Name Freq PRN Reason Stop Dose Admin Omeprazole 40 mg 12/27/24 22:39 12/27/24 22:43 Omeprazole 40 Mg Capsule.Dr BRYANT 12/27/24 22:40 40 mg ONCE ONE Administration Discharge Plan Discharge Clinical Impression: Gastritis Patient Disposition: Home, Self-Care Instructions: Gastritis (ED) Additional Instructions: I think that you have a condition we called gastritis. This is an irritation of the lining of the stomach, usually related to stomach acid problems. Please take the omeprazole once a day as prescribed. You have also been sent a prescription for medication called sucralfate that you can use on an as-needed basis for upper abdominal discomfort. You may take this up to 3 times a day. You have also been sent a prescription for ondansetron which you may use as needed for nausea. I would recommend stopping using marijuana for awhile to see if this helps with nausea and vomiting. Avoid greasy and spicy foods and alcohol as well. Please work on getting a new primary care doctor. You has been given the numbers of some local primary care clinics. Return to the emergency room if worse. Prescriptions: New omeprazole 40 mg capsule,delayed release(DR/EC) 40 mg PO DAILY Qty: 30 1RF ondansetron 4 mg tablet,disintegrating 4 mg PO Q6H PRN (Reason: nausea and vomiting) Qty: 10 0RF sucralfate 1 gram tablet 1 g PO TID PRN (Reason: upper abdominal pain) Qty: 60 0RF No Action famotidine [Pepcid] 20 mg tablet 20 mg PO DAILY PRN (Reason: abdominal discomfort) Qty: 30 0RF ondansetron 4 mg tablet,disintegrating 4 mg PO Q8H PRN (Reason: nausea and vomiting) Qty: 20 0RF omeprazole 20 mg capsule,delayed release(DR/EC) 20 mg PO DAILY 14 Days Qty: 14 0RF ondansetron HCl 4 mg tablet 4 mg PO Q8H PRN (Reason: nausea and vomiting) Qty: 10 0RF Referrals: [facility] Primary Care, Sade [Provider Group] [facility] Primary Care,Guevara [Provider Group] [facility] Primary Care, Moi Aquino [Provider Group] Stand Alone Forms: Work/School Release Interventions: ED Discharge Assessment Last Done: 12/27/24 22:50 Discharge Date/Time: 12/27/24 22:56 Print Language: Ghanaian
[2024-12-27 19:27] LABS: MANUAL DIFF FLAG NO
--- OUTSIDE RECORDS SUMMARY | 2024-12-27 19:27 | XMS_ITS | Clinical Summary ---
Author Organization [facility] Address [address] [place] [address] Care Team Providers Care Oracle Identity Management Consultant Name Role Phone Unavailable Primary Care Provider [...]
--- OUTSIDE RECORDS SUMMARY | 2024-12-27 19:27 | XMS_ITS | Clinical Summary ---
Author Organization [facility] Address [address] [place] [address] Care Team Providers Care Power Barker Operator Name Role Phone Pcp, No Primary Care [...] 11:44 PM 02/05/2019 11:50 PM Care Teams Power Barker Operator Relationship Specialty Start Date End Date Pcp, No PCP - General General Medicine 11/16/23
--- OUTSIDE RECORDS SUMMARY | 2024-12-27 19:27 | XMS_ITS | Clinical Summary ---
Author Organization [facility] ity Address [address] [place] [address] Care Team Providers Care Computer Application Developer Name Role Phone Unavailable Primary Care Provider Unavailabl e Surgical History Surgery Date Site/Laterality Comments ANKLE FRACTURE SURGERY PROCEDURE:ANKLE FRACTURE SURGERY Social History Tobacco Use Types Packs/Day Years Used Date Smoking Tobacco: Never Smokeless Tobacco: Never Alcohol Use Standard Drinks/Week Comments Never 0 (1 standard drink = 0.6 oz pur e alcohol) Sex and Gender Information Value Date Recorded Sex Assigned at Not on file Legal Sex Male 12:43 PM EST Gender Identity Not on file Sexual Orientation Not on file Obstetrics History Plan of Treatment Health Maintenance Due Date Last Done Comments HPV Vaccines (1 - Male 3-dos e series) 2013 DTaP,Tdap,and Td Vaccines (1 - Tdap) 2017 Hepatitis B Vaccines (1 of 3 - 19+ 3-dose series) 2017 Depression Screening 10/01/2022 HIV Screening 10/01/2022 Hepatitis C Screening 10/01/2022 Social Influencers of Health Screening 10/01/2022 COVID-19 Vaccine ( - 2023-2 5 season) 2024 Influenza Vaccine (#1) 2024 HIB Vaccines Aged Out No longer eligi ble based on patient's age to complete this topic Hepatitis A Vaccines Aged Out No long er eligible based on patient's age to complete this topic IPV Vaccines Aged Out No longer eligi ble based on patient's age to complete this topic MMR Vaccines Aged Out No longer eligi ble based on patient's age to complete this topic Meningococcal ACWY Vaccine Aged Out N o longer eligible based on patient's age to complete this topic Meningococcal B Vacine Aged Out No lo nger eligible based on patient's age to complete this topic Pneumococcal Vaccine: Pediat rics (0 to 5 Years) and At-Risk Patients (6 to 64 Years) Aged Out No longer eligible b ased on patient's age to complete this topic RSV Immunization Patients Un laina 20 months Aged Out No longer eligible b ased on patient's age to complete this topic Varicella Vaccines Aged Out No longer eligible based on patient's age to complete this topic
--- OUTSIDE RECORDS SUMMARY | 2024-12-27 19:27 | XMS_ITS | Encounter Summary ---
Author Organization [facility] Address [address] [place] [address] Care Team Providers Care Dietetics Director Name Role Phone Antonio Byers Primary Care Provider [phone] Ramona Champion MD Unavailable Unavaila ble Antonio Byers Primary Care Provider [phone] Antonio Byers Primary Care Provider [phone] Pcp, No Primary Care Provider Unavailabl e Encounter Details Date Type Department Care Team (Late st Contact Info) Description 06/06/2020 Telephone [facility] Urologic Surgery [place] [address] [facility] [address] [place] [phone] Rony Sanchez MD [address] [facility] [address] [place] [id number] Social History Tobacco Use Types Packs/Day Years [...] on filedocumented in this encounter Care Teams Dietetics Director Relationship Specialty Start Date End Date Antonio Byers PA PCP - General Internal Medicine 05/23/20 11/14/21 Ramona Champion MD Retired provider PCP - Rolly Perez 01/01/21 09/02/21 Antonio Byers PA Retired provider PCP - General Emergency Medicine 03/29/22 11/15/23 Antonio Byers PA [facility] [address] [place] [address] PCP - General Emergency Medicine 03/15/22 03/28/22 Pcp, No PCP - General General Medicine 11/16/23 documented as of this encounter
--- OUTSIDE RECORDS SUMMARY | 2024-12-27 19:27 | XMS_ITS | Encounter Summary ---
Author Organization [facility] Address [address] [place] [address] Care Team Providers Care Supervisor Wire Rope Fabrication Name Role Phone Pcp, No Primary Care Provider Unavailabl e Encounter Details Date Type Department Care Team (Late st Contact Info) Description 05/06/2020 2:58 PM EDT Hospital Encounter [facility] [address] [facility] [place] [address] [place] [phone] Eliz Escalona, SCHOOL EXAMINER [address] [facility] [address] Social History Tobacco Use Types Packs/Day Years [...] cardiopulmonary disease, pneumothorax,or displaced fracture. Eliz Escalona SCHOOL EXAMINER IMG DIAGNOSTIC IMAGI NG ORDERABLES documented in this encounter Visit Diagnoses Not on filedocumented in this encounter Care Teams Supervisor Wire Rope Fabrication Relationship Specialty Start Date End Date Pcp, No PCP - General General Medicine 04/26/20 05/22/20 documented as of this encounter
--- OUTSIDE RECORDS SUMMARY | 2024-12-27 19:27 | XMS_ITS | Continuity of Care Document ---
Author Organization [facility] Address [address] [place] [address] Phone Care Team Providers Care Resolute Professional Name Role Phone Gil Madrigal LMSW Unavailable [...] Location Reason(s) For Visit Diagnoses Date Provider [facility], [address] [place] [address], [address] [place] [address] tel:[phone] OP A [address] No Information 2022 Rohan Cordero. [address] [place] [address], [address] [place] [address], . tel:[phone] [facility], [facility], tel:[phone] OP A [address] 2021 Rohan Cordero. [address] [place] [address], [address] [place] [address], . tel:[phone] [facility], [address] [place] [address], [address] [place] [address] tel:[phone] OP A [address] 2021 Rohan Cordero. [address] [place] [address], [address] [place] [address], [place]. tel:[phone] [facility] Flores [facility], [address] [place] [address], [facility], tel:[phone] OP A [address] 2021 Madrigal Luseldi. [address] [place] [address], [address] [place] [address], [place]. tel:[phone] [place] [address], [address] [place] [address], [facility], [place] tel:[phone] OP A [address] 2021 Madrigal Luseldi. [address] [place] [address], [address] [place] [address], [place]. tel:[phone] [place] [address], [address] [place] [address], [facility], tel:[phone] OP A [address] Medication Management (chief complaint)Collin pérezatric (chief complaint) 2021 Marcos Gonzalez. [address] [place] [address], [address] [place] [address], [place]. tel:[phone] [place], [place] [address]er [facility], [address] [place] [address], [facility], tel:[phone] OP A [address] 2021 Madrigal Luseldi. [address] [place] [address], [address] [place] [address], [place]. tel:[phone] [place] [address], [address] [place] [address], [facility], [place] tel:[phone] OP A fd [address] No Information 2021 Marcos Gonzalez. [address] [place] [address], [address] [place] [address], [place]. tel:[phone] [place], [place] [address]er [facility], [address] [place] [address], [facility], tel:[phone] OP A [address] 2021 Madrigal Luseldi. [address] [place] [address], [address] [place] [address], [place]. tel:[phone] [facility], [address] [place] [address], [facility], tel:[phone] OP A [address] 2021 Madrigal Luseldi. [address] [place] [address], [address] [place] [address], [place]. tel:[phone] [place] [address], [address] [place] [address], [facility], tel:[phone] OP A [address] Medication Management (chief complaint)Collin chiatric (chief complaint) 2021 Marcos Gonzalez. [address] [place] [address], [address] [place] [address], [place]. tel:[phone] [place] [address], [address] [place] [address], [facility], tel:[phone] OP A [address] 2021 Madrigal Luseldi. [address] [place] [address], [address] [place] [address], [place]. tel:[phone] [place] [address], [address] [place] [address], [facility], tel:[phone] OP A [address] 2021 Madrigal Luseldi. [address] [place] [address], [address] [place] [address], [place]. tel:[phone] [place], [place] [address]er [facility], [address] [place] [address], [facility], tel:[phone] OP A [address] 2021 Madrigal Luseldi. [address] [place] [address], [address] [place] [address], [place]. tel:[phone] [facility] Flores [facility], [address] [place] [address], [facility], tel:[phone] OP A [address] 2021 Marcos Gonzalez. [address] [place] [address], [address] [place] [address], [place]. tel:[phone] [facility] Flores [facility], [address] [place] [address], [facility], tel:[phone] OP A [address] 2021 Christian Lopez. [address] [place] [address], [place], [place], [id number], [place]. tel:[phone] As per patient privacy policy some of the clinical information may not be visible. Family History Family Member Type Diagnosis Age At Onset Father Problem anger Mother Problem Alive and well Mother Problem Depression Father Problem Alive and well Mother Problem Anxiety disorder Payers Payer name Insurance type Covered republican ID Laurie watson(s) [facility] [id number] Social History Type Description Quantity Date Captured Comments Sex Male Smoking Status No Information Sexual Orientation Straight or heterosexual Gender Identity Male Chief Complaint And Reason For Visit No Information Plan Of Treatment Date Type Action Status Goal Tdap. Due on due Goal Unhealthy drug u se screening. Due on due Goal Depression screening. Due on due Goal Influenza vaccine. Due on due Goal Td vaccine. Due on due Goal Health Literacy Assessment. Due on due Goal Hepatitis C screening. [...] Influenza vaccine. Due on No due Goal Td vaccine. Due on due [...] Influenza vaccine. Due on Oc due Goal Hepatitis C screening. Due o n due Goal Depression screening. Due on due Goal Td vaccine. Due on due Goal Health Literacy Assessment. Due on due Goal Td vaccine. Due on due Goal Unhealthy drug u se screening. Due on due Goal Tdap. Due on due Goal Health Literacy Assessment. Due on due Goal Hepatitis C screening. Due o n due Goal Influenza vaccine. Due on Oc due Goal Depression screening. Due on due [...] 1/0/2 Ag/Ab w/Rflx. Due on due Goal Hepatitis C screening. [...] Health Literacy Assessment. Due on due Goal Hepatitis C screening. Due o n due Goal Depression screening. Due on due Goal Influenza vaccine. Due on due Goal Tdap. Due on due Goal Health Literacy Assessment. Due on due Goal Unhealthy drug u se screening. Due on due Goal Td vaccine. Due on due Goal HIV 1/0/2 Ag/Ab w/Rflx. Due on due Goal HIV 1/0/2 Ag/Ab w/Rflx. Due on due Goal Health Literacy Assessment. Due on due Goal Tdap. Due on due Goal Td vaccine. Due on due Goal Depression screening. Due on due Goal Hepatitis C screening. Due o n due Goal Influenza vaccine. Due on due Goal Unhealthy drug [...] due Goal Depression screening. Due on due Referral Ordered: Referrals: Neuropsychology - Adult ordered Future Order: Lab Order LIPID PANEL ([id number] ), Sent on: Sent Future Order: Lab Order THYROID PANEL ([id number]), Sent on: Sent Future Order: Lab Order PROLACTIN ([id number]), Sent on: Sent Future Order: Lab Order COMPREHE NSIVE METABOLIC PANEL ([id number]), Sent on: Sent Future Order: Lab Order CBC (INC LUDES DIFF/PLT) ([id number]), Sent on: Sent Future Order: Lab Order [...]
--- OUTSIDE RECORDS SUMMARY | 2024-12-27 19:27 | XMS_ITS | Encounter Summary ---
Author Organization [facility] Address [address] [place] [address] Care Team Providers Care Housekeeper Home Name Role Phone Pcp, No Primary Care Provider Unavailabl e Encounter Details Date Type Department Care Team (Late st Contact Info) Description 10/09/2019 1:05 PM EST Hospital Encounter [facility] [address] [facility] [address] [place] [address] Adryan Torres PA [place] [facility] [address] [place] [address] Social History Tobacco Use Types Packs/Day Years [...] on filedocumented in this encounter Care Teams Housekeeper Home Relationship Specialty Start Date End Date Pcp, No PCP - General General Medicine 08/04/19 04/25/20 documented as of this encounter
--- OUTSIDE RECORDS SUMMARY | 2024-12-27 19:27 | XMS_ITS | Continuity of Care Document ---
Author Organization [facility] Address [address] [place] [address] Phone Care Team Providers Care Business System Consultant Name Role Phone Colin MIGUELPedro Unavailable Unavailab [...] Active Procedures Procedure Date PREV VISIT, [facility], AGE 18-39 Advance Directives Directive Yes / No Effective Date File Name No Information Encounters Encounter Description Practice Location Reason(s) For Visit Diagnoses Date Provider Providers Copied on Encounter [facility], [address] [place] [address], [facility], tel:[phone] [facility] Adult Medicine No Information [facility]. [facility], [id number] [address] [place] [address], [facility], [place]. tel:[phone] PREV VISIT, NEW, AGE 18-39 [facility], [address] [place] [address], [facility], [place] tel:[phone] [facility] Adult Medicine [place] Establish Care/Annual Physical (chief complaint) Encounter for general adult medical examination without abnormal findingsBody mass index (BMI) 33.0-33.9, adultAcute right ankle painLow back pain, unspecified back pain laterality, unspecified chronicity, unspecified whether sciatica present [facility]. [address] [place] [address], [id number] [address] [place] [address], [facility], [place]. tel:[phone] Family History Family Member Type Diagnosis Age At Onset No Information Payers Payer name Insurance type Covered green party ID Authorlebron watson(s) [employer] [place] [id number] Social History Type Description Quantity Date Captured [...]
[2024-12-27 19:29] LABS: Basophils Absolute Auto 0.1 X10*3/uL (0.0-0.2); Basophils Percent Auto 0.7 % (0-2); Eosinophils Absolute Auto 0.2 X10*3/uL (0.0-0.4); Eosinophils Percent Auto 2.2 % (0-4); Hematocrit 41.2 % (42.0-52.0); Hemoglobin 14.5 g/dl (14.0-18.0); Imm Gran Abs Auto 0.02 X10*3/uL (0.00-0.03); Imm Gran Pct Auto 0.2 % (0.0-0.4); Lymphocytes Absolute Auto 2.2 X10*3/uL (1.2-4.9); Lymphocytes Percent Auto 24.8 % (20-40); Mean Corpuscular HGB Conc 35.2 g/dl (31.0-36.0); Mean Corpuscular Volume 93.8 fL (80.0-98.0); Mean Platelet Volume 9.9 fL (9.4-12.4); Monocytes Absolute Auto 0.8 X10*3/uL (0.1-1.2); Monocytes Percent Auto 8.3 % (2-11); Neutrophils Absolute Auto 5.7 x10*3/uL (2.0-8.3); Neutrophils Percent Auto 63.8 % (45-73); Platelet Count 271 X10*3/uL (160-400); Red Blood Count 4.39 X10*6/uL (4.60-5.80)
[2024-12-27 19:35] LABS: INTERNATIONAL NORM RATIO 0.9 (0.9-1.1); Prothrombin Time 10.1 SEC (10.9-12.4)
[2024-12-27 19:43] LABS: Alanine Aminotransferase 20 U/L (0-40); Albumin Level 4.3 g/dL (3.5-5.0); Alkaline Phosphatase 75 U/L (39-117); Anion Gap 14 (12-20); Aspartate Amino Transferase 36 U/L (5-37); Bilirubin Total 0.8 mg/dL (0.0-1.0); Blood Urea Nitrogen 22 mg/dL (9-16); Calcium 9.1 mg/dL (8.4-10.2); Carbon Dioxide 22 mmol/L (22-29); Chloride 108 mmol/L (96-108); Creatinine Clr Calc Pharmacy 105.8; Estimated Glomerular Filt Rate > 60; Glucose Random 90 mg/dL (60-115); Magnesium 2.3 mg/dL (1.6-2.6); Potassium 3.6 mmol/L (3.3-5.1); Sodium 140 mmol/L (135-145)
[2024-12-27 19:56] LABS: Lipase 12 U/L (8-78)
[2024-12-27 20:05] LABS: Influenza A PCR NEGATIVE (Negative); Influenza B PCR NEGATIVE (Negative); Resp Syncy Virus RNA Qual PCR NEGATIVE (Negative); SARS COV2 PCR INHOUSE NEGATIVE (Negative)
[2024-12-27 22:04] VITALS: BP 123/92; PULSE 67; RESP 18; TEMP 37; O2SAT 99
--- NOTE | 2024-12-27 22:05 | PC.NURSE ---
Pt a&ox4, no signs of distress. Pt reports 1/10 intermittent abd pain w/ associated n/v/d times 3 wks Plan of care ongoing.
[2024-12-27] MEDS: Omeprazole 40 MG CAPSULE.DR PO (22:43)
--- NOTE | 2024-12-27 22:45 | PC.NURSE ---
Pt medicated per [facility] Plan of care ongoing.
[2024-12-27 22:50] VITALS: BP 123/92; PULSE 67; RESP 18; TEMP 37; O2SAT 99
== END 2024-12-27 22:56 | disposition home or self-care (01) ==
PROVIDERS: Physician Assistant Medical; Emergency Provider Emergency Medicine
DX: K29.70 Gastritis, unspecified, without bleeding (principal); R11.2 Nausea with vomiting, unspecified; R10.2 Pelvic and perineal pain; Z03.818 Encounter for observation for suspected exposure to other biological agents ruled out; Z79.899 Other long term (current) drug therapy
CPT/HCPCS: 0241U; 36415; 80053; 83690; 83735; 85025; 85610; 99283; 99284